=== PATIENT | male | born 1995 | race American Indian/Alaskan Native ===

== ENCOUNTER 2019-02-08 06:05 | Emergency (ER) | payer BC, OTHER ==
[2019-02-08] MEDS ORDERED: SODIUM CHLORIDE 0.9% 1000 ML 1,000 ML IV ONE (09:09)
--- NOTE | 2019-02-08 09:09 | Emergency Department Report ---
ED Syncope HPI - General Chief Complaint: Upper Respiratory Infection Stated Complaint: FLU Time Seen by Provider: 02/08/19 08:59 Source: patient, family Exam Limitations: no limitations - History of Present Illness Initial Comments: Mr. Colby is a 23 yo with hx of asthma who presents with subjective fever, chills cough headach neck pain. Cough with mucus. Timing/Prior Episodes: no prior history Precipitating Factors: Positive: lightheadedness Context: standing Episode Description: girlfriend witnessed brief episode of syncope Loss of Consciousness: brief (seconds) Current Symptoms: headache, other (fever chills neck pain body ache) - Related Data Home Medications: Ambulatory Orders ALBUTEROL Inhaler (OR & NICU) [ProAir HFA Inhaler] 2 puff IH QID PRN #8.5 gram 02/08/19 Oseltamivir [Tamiflu] 75 mg PO BID 5 Days #10 cap 02/08/19 predniSONE [Deltasone] 3 tab PO QDAY 4 Days #12 tab 02/08/19 ED Review of Systems ROS: Stated complaint: FLU Other details as noted in HPI Comment: All other systems reviewed and negative Constitutional: fever, malaise Respiratory: cough Neurological: headache ED Past Medical Hx - Past Medical History Previous Medical History?: Yes Hx Asthma: Yes - Surgical History Past Surgical History?: No - Social History Smoking Status: Current Every Day Smoker Substance Use Type: Alcohol - Medications Home Medications: Home Medications Medication Instructions Recorded Confirmed Last Taken Type ALBUTEROL Inhaler (OR & NICU) 2 puff IH QID PRN #8.5 gram 02/08/19 Unknown Rx [ProAir HFA Inhaler] Oseltamivir [Tamiflu] 75 mg PO BID 5 Days #10 cap 02/08/19 Unknown Rx predniSONE [Deltasone] 3 tab PO QDAY 4 Days #12 tab 02/08/19 Unknown Rx ED Physical Exam - General Limitations: No Limitations General appearance: alert, in no apparent distress, other (frequent wet sounding cough) - Head Head exam: Present: atraumatic, normocephalic - Eye Eye exam: Present: normal appearance - ENT ENT exam: Present: mucous membranes moist - Neck Neck exam: Present: normal inspection, full ROM. Absent: tenderness, meningismus - Respiratory Respiratory exam: Present: normal lung sounds bilaterally. Absent: respiratory distress, wheezes, rales, rhonchi - Cardiovascular Cardiovascular Exam: Present: regular rate, normal rhythm. Absent: systolic murmur, diastolic murmur, rubs, gallop - GI/Abdominal GI/Abdominal exam: Present: soft, normal bowel sounds. Absent: distended, tenderness, guarding, rebound - Rectal Rectal exam: Present: deferred - Extremities Exam Extremities exam: Present: normal inspection - Back Exam Back exam: Present: normal inspection - Neurological Exam Neurological exam: Present: alert, oriented X3 - Psychiatric Psychiatric exam: Present: normal affect, normal mood - Skin Skin exam: Present: warm, dry, intact, normal color. Absent: rash ED Course Vital Signs 02/08/19 02/08/19 02/08/19 06:09 09:30 10:58 Temperature 99.7 F H 98.3 F Pulse Rate 100 H 86 Respiratory 18 16 20 Rate Blood Pressure 114/67 Blood Pressure 133/76 [Left] O2 Sat by Pulse 97 100 Oximetry ED Medical Decision Making - Radiology Data Radiology results: report reviewed cxr nap - Medical Decision Making Temp Pulse Resp BP Pulse Ox 98.3 F 86 20 133/76 100 02/08/19 10:58 02/08/19 10:58 02/08/19 10:58 02/08/19 10:58 02/08/19 10:58 Clinical diagnosis of influenza. I do not suspect septic shock without persistent SIRS. No evidence of meningismus on exam. I do not suspect meningitis. CXR negative for acute findings. rx: prednisone for prophylactic asthma treatment, tamiflu, albuterol MDI Critical care attestation.: If time is entered above; I have spent that time in minutes in the direct care of this critically ill patient, excluding procedure time. ED Disposition Clinical Impression: Influenza, Asthma, Syncope Disposition: DC-01 TO HOME OR SELFCARE Is pt being admited?: No Does the pt Need Aspirin: No Condition: Stable Instructions: Syncope (ED), Influenza (ED) Prescriptions: predniSONE [Deltasone] 3 tab PO QDAY 4 Days #12 tab ALBUTEROL Inhaler (OR & NICU) [ProAir HFA Inhaler] 2 puff IH QID PRN #8.5 gram PRN Reason: Shortness Of Breath Oseltamivir [Tamiflu] 75 mg PO BID 5 Days #10 cap Referrals: DEISI GERARDO MD [Staff Physician] - as needed Forms: Work/School Release Form(ED)
[2019-02-08] MEDS ORDERED: KETOROLAC 30 MG/1 ML INJ IV ONE (09:10)
--- NOTE | 2019-02-08 09:30 | XRay Report ---
CHEST 2 VIEWS INDICATION / CLINICAL INFORMATION: cough. COMPARISON: None available. FINDINGS: SUPPORT DEVICES: None. HEART / MEDIASTINUM: No significant abnormality. LUNGS / PLEURA: No significant pulmonary or pleural abnormality. No pneumothorax. ADDITIONAL FINDINGS: No significant additional findings. IMPRESSION: 1. No acute findings. Signer Name: Franko Moise MD Signed: 02/08/2019 9:25 AM Workstation Name: [id number]
[2019-02-08 10:59] VITALS: BP 133/76
== END 2019-02-08 11:25 | disposition home or self-care (01) ==
LOC: ED 06:05
DX: J11.1 Influenza due to unidentified influenza virus with other respiratory manifestations (principal); J45.909 Unspecified asthma, uncomplicated; R55 Syncope and collapse; F17.200 Nicotine dependence, unspecified, uncomplicated
CPT/HCPCS: 71046; 96361; 96374; 99283; J1885; J7030